=== PATIENT | male | born 1955 | race Caucasian/White ===

== ENCOUNTER 2022-01-30 15:10 | Emergency (ER) | payer OTHER ==
[~2022-01-30] VITALS: Ht 182.9 cm; Wt 74.8 kg
--- NOTE | 2022-01-30 15:14 | NUR ---
BIBS C/O CHEST PAIN PRESSURE LIKE ON AND OFF, NON RADIATING FOR 5 DAYS. PATIENT STATED HE HAS A PAIN 7/10 ON PAIN SCALE. DENIES NAUSEA AND HEADACHE. ATTACHED TO MONITOR, VITALS ARE WITHIN NORMAL LIMITS. DR YARBROUGH AT BEDSIDE. AWAITING MD ORDERS.
--- NOTE | 2022-01-30 15:22 | NUR ---
IV ESTABLISHED R AC 20G. LABS DRAWN AND COLLECTED AT BEDSIDE.
[2022-01-30 15:43] LABS: BASOPHILS % (AUTO) 0.4 % (0.0-2.0); HEMATOCRIT 44 % (39-51); HEMOGLOBIN 14.7 g/dL (13.5-17.5); LYMPHOCYTES % (AUTO) 31.3 % (20.0-44.0); MEAN CORPUSCULAR HGB CONC 33 g/dl (31.0-36.0); MEAN CORPUSCULAR VOLUME 95 fL (80-96); MONOCYTES # (AUTO) 0.5 K/uL (0.1-1.30); MONOCYTES % (AUTO) 7.1 % (2.0-12.0); NEUTROPHILS # (AUTO) 3.9 K/uL (1.8-8.9); NEUTROPHILS % (AUTO) 60.2 % (43.0-81.0); PLATELET COUNT (AUTO) 261 K/uL (150-450); RED BLOOD CELL COUNT(AUTO) 4.65 MIL/uL (4.5-6.0); WHITE BLOOD COUNT (AUTO) 6.5 K/uL (4.3-11.0)
--- NOTE | 2022-01-30 15:52 | NUR ---
COVID TEST COLLECTED AND SENT
[2022-01-30] MEDS ORDERED: PRAV10TA40 PO (15:59)
[2022-01-30] MEDS ORDERED: ASPI-1169 PO (15:59)
[2022-01-30] MEDS ORDERED: DILT180C92 PO (15:59)
[2022-01-30] MEDS ORDERED: LOSA25TA27 PO (15:59)
[2022-01-30] MEDS ORDERED: LORA10TA7 PO (15:59)
[2022-01-30 16:20] LABS: ALANINE AMINOTRANSFERASE 22 U/L (12-78); ALBUMIN 3.9 g/dL (3.4-5.0); ALKALINE PHOSPHATASE 57 U/L (46-116); ASPARTATE AMINOTRANSFERASE 16 U/L (15-37); BILIRUBIN,DIRECT 0.2 mg/dL (0.0-0.2); BILIRUBIN,TOTAL 0.9 mg/dL (0.2-1.0); CALCIUM, SERUM 8.6 mg/dL (8.5-10.1); CARBON DIOXIDE 30 mmol/L (21-32); CHLORIDE 102 mmol/L (98-107); GLUCOSE 128 mg/dL (74-106); POTASSIUM 3.5 mmol/L (3.5-5.1); SODIUM SERUM 137 mmol/L (136-145); TOTAL PROTEIN, SERUM 7.4 g/dL (6.4-8.2); UREA NITROGEN, BLOOD 11 mg/dL (7-18)
--- NOTE | 2022-01-30 16:52 | NUR ---
CALLED [facility] [phone] DR. KRAUSE WILL CALL US BACK.
--- NOTE | 2022-01-30 17:00 | NUR ---
DR. KRAUSE SPEAKING WITH DR. YARBROUGH.
[2022-01-30] MEDS ORDERED: ASPIRIN 325 MG TABLET ONE (19:38)
[2022-01-30] MEDS ORDERED: ASPIRIN 81 MG TAB.CHEW PO ONE (20:00)
[2022-01-30 20:04] VITALS: BP 129/88
--- NOTE | 2022-01-30 20:04 | NUR ---
Patient discharged to home in stable condition. Written and verbal after care instructions given. Patient verbalizes understanding of instruction.IV removed. Catheter intact and site benign. Pressure and 4x4 applied to site. No bleeding noted.
== END 2022-01-30 20:04 | disposition home or self-care (01) ==
LOC: ER 15:12
DX: R07.9 Chest pain, unspecified (principal); I10 Essential (primary) hypertension; Z82.49 Family history of ischemic heart disease and other diseases of the circulatory system; E78.5 Hyperlipidemia, unspecified; Z79.899 Other long term (current) drug therapy; Z20.822 Contact with and (suspected) exposure to COVID-19
CPT/HCPCS: 99285; 71045; 87426; 93005; 85025; 80048; 80076; 36415; 84484 ×2; 83880; C9803